=== PATIENT | female | born 1965 | race African-American/Black ===

== ENCOUNTER 2016-03-04 16:04 | Emergency (ER) | payer MEDICARE, OTHER ==
[~2016-03-04] VITALS: Ht 160 cm; Wt 92.0 kg
[~2016-03-04 16:04] MED LIST: ALBU18HF INHALATION; ALBU8.5H3 INH; ATOR40TA68 PO; BUS5 PO; FOLI-49 PO; HYDR28.470 TP; IPRA12.93 IH; LEVE-5 PO; MET25 PO; NORT10CA2 PO; OMEG-134 PO; ONDA4TAB8 PO; OXYC5CAP17 PO; PANT40TA3 PO; PRED5TAB50 PO; QUET50TA22 PO; SERT50TA PO; TOPI100T42 PO; TRAZ100T15 PO
[2016-03-04 16:09] VITALS: Ht 160 cm; Wt 92.0 kg
[2016-03-04] MEDS ORDERED: HYDROmorphONE 1 MG/ML SYG IM STA (17:35)
[2016-03-04] MEDS ORDERED: ONDANSETRON (ODT) 4 MG TAB ODT STA (17:35)
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
[2016-03-04] MEDS ORDERED: IBUP-1542 PO (19:16)
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
[2016-03-04 19:31] VITALS: BP 114/50; PULSE 83; RESP 20; TEMP 99.7
== END 2016-03-04 19:34 | disposition home or self-care (01) ==
LOC: FTE 16:04
DX: S09.90XA Unspecified injury of head, initial encounter (principal); S09.93XA Unspecified injury of face, initial encounter; F17.210 Nicotine dependence, cigarettes, uncomplicated; R51 Headache; Y08.89XA Assault by other specified means, initial encounter
CPT/HCPCS: 70450; 70486; 96372; 99285; J1170